=== PATIENT | female | born 2000 | race Caucasian/White ===

== ENCOUNTER 2019-07-04 04:43 | Emergency (ER) | payer OTHER ==
[~2019-07-04] VITALS: Ht 177.8 cm; Wt 108.9 kg
== END 2019-07-04 06:18 | disposition home or self-care (01) ==
LOC: ED 04:43
DX: R51 Headache (principal); R42 Dizziness and giddiness; R11.0 Nausea; Z32.02 Encounter for pregnancy test, result negative

== ENCOUNTER 2019-07-09 17:45 | Emergency (ER) | payer OTHER ==
[~2019-07-09] VITALS: Ht 177.8 cm; Wt 108.9 kg
[2019-07-09] MEDS ORDERED: CORTISPORIN SUS10 ML OT (18:26)
== END 2019-07-09 18:43 | disposition home or self-care (01) ==
LOC: ED 17:45
DX: H60.91 Unspecified otitis externa, right ear (principal)

== ENCOUNTER → 2019-07-13 | Outpatient (CLI) | payer OTHER ==
[~2019-07-13] MED LIST: CORTISPORIN SUS10 ML OT
== END | disposition home or self-care (01) ==
LOC: RESCLI 00:53
DX: G43.909 Migraine, unspecified, not intractable, without status migrainosus (principal)

== ENCOUNTER 2021-04-02 21:31 | Emergency (ER) | payer OTHER ==
[~2021-04-02] VITALS: Ht 180.3 cm; Wt 108.9 kg
[2021-04-02] MEDS ORDERED: AMOXICILLIN500 M2 PO (22:49)
== END 2021-04-03 00:16 | disposition home or self-care (01) ==
LOC: ED 21:31
DX: J03.90 Acute tonsillitis, unspecified (principal); Z79.899 Other long term (current) drug therapy

== ENCOUNTER 2021-08-25 20:11 | Emergency (ER) | payer OTHER ==
[~2021-08-25 20:11] MED LIST changes: +AMOXICILLIN500 M2 PO
[2021-08-25 22:57] LABS: BILIRUBIN Negative (Negative); BLOOD Negative (Negative); CLARITY Clear (Clear); COLOR Yellow (Yellow); GLUCOSE Negative (Negative); KETONE Negative (Negative); LEUKO ESTERASE Negative (Negative); NITRITE Negative (Negative); PH 5.5 (4.5-8.0); SPECIFIC GRAVITY 1.025 (1.001-1.030)
[2021-08-25 23:16] LABS: BACTERIA 1+; EPITHELIAL CELLS 16-20
[2021-08-26 00:11] LABS: BASO % 0.3 % (0.0-1.0); EOS # 0.2 10*3/uL (0.0-0.4); HEMATOCRIT 38.8 % (37.0-47.0); LYMPH # 3.7 10*3/uL (1.3-4.4); MEAN CELL VOLUME 85.8 fl (81.0-99.0); MEAN CORPUSCULAR HGB 27.2 pg (27.0-31.0); MEAN CORPUSCULAR HGB CONC 31.7 g/dl (33.0-37.0); MEAN PLATELET VOLUME 9.5 fl (9.6-12.3); MONO # 0.6 10*3/uL (0.1-1.0); NEUT # 5.4 10*3/uL (2.3-7.9); NEUT % 54.4 % (47.0-73.0); PLATELET COUNT AUTOMATED 250 10*3/uL (130-400); RED BLOOD COUNT 4.52 10*6/uL (4.10-5.10); RED CELL DISTRI WIDTH 12.9 % (0-14.5)
[2021-08-26 00:26] LABS: ALBUMIN 3.3 gm/dl (3.1-4.5); ALKALINE PHOSPHATASE 59 U/L (45-117); BUN 13 mg/dl (7-24); CHLORIDE 110 mmol/L (98-107); CREATININE 0.56 mg/dL (0.55-1.02); SGOT/AST 11 IU/L (3-35); SGPT/ALT 22 U/L (12-78); SODIUM 139 mmol/L (136-145); TOTAL PROTEIN 7.2 gm/dL (6.4-8.2)
== END 2021-08-26 02:55 | disposition home or self-care (01) ==
LOC: ED 20:11
PROVIDERS: Emergency Medicine
DX: R10.9 Unspecified abdominal pain (principal)